=== PATIENT | female | born 1975 | race American Indian/Alaskan Native ===

== ENCOUNTER 2021-05-01 17:53 | Emergency (ER) | payer MEDICARE ==
[2021-05-01 20:03] VITALS: BP 154/71
--- NOTE | 2021-05-01 20:26 | Emergency Department Report ---
ED General Adult HPI - General Chief complaint: Allergic Reaction Stated complaint: FACIAL RASH Time Seen by Provider: 05/01/21 20:19 Source: patient Mode of arrival: Ambulatory Limitations: No Limitations - History of Present Illness Initial comments: 45 y/o female pt w/ hx of gastric bypass surgery presents to ED w/ complaints of pruritic rash and facial swelling for two days. No new foods, medications, or environmental/occupational exposures. Pt has been taking Benadryl and using OTC steroid cream with limited relief. No history of similar symptoms. Denies fever, chills, chest pain, wheezing, SOB, syncope, swelling of the tongue/lips. Denies all other complaints at this time. - Related Data Previous Rx's Medication Instructions Recorded Last Taken Type Famotidine [Acid Controller] 20 mg PO DAILY 5 Days tablet 05/01/21 Unknown Rx Hydrocortisone 2.5% [Hytone 2.5% 1 applicatio TP TID #1 tube 05/01/21 Unknown Rx CREAM] ED Review of Systems ROS: Stated complaint: FACIAL RASH Other details as noted in HPI Other: GENERAL: Negative for fever, chills, weight change, anorexia, fatigue. ENT: Negative for ear pain, difficulty hearing, sore throat, nasal congestion, epistaxis. CARDIOVASCULAR: Negative for chest pain, palpitations, lower extremity swelling. PULMONARY: Negative for cough, dyspnea, wheezing, orthopnea, cyanosis. GASTROINTESTINAL: Negative for abdominal pain, nausea, vomiting, diarrhea, constipation. MUSCULOSKELETAL: Negative for joint pain, joint swelling, myalgias, back pain, neck pain. NEUROLOGICAL: Negative for headache, seizure, syncope, paresthesias, weakness. INTEGUMENTARY: Positive for itching and swelling. HEMATOLOGICAL: Negative for hemoptysis, hematemesis, hematochezia, hematuria. PSYCHIATRIC: Negative for hallucinations, suicidal ideation, homicidal ideation, anxiety, depression. ED Past Medical Hx - Past Medical History Previous Medical History?: Yes Hx Deep Vein Thrombosis: Yes Hx GERD: Yes Hx Psychiatric Treatment: Yes (Depression, anxiety) - Surgical History Additional Surgical History: gastric bypass - Medications Home Medications: Home Medications Medication Instructions Recorded Confirmed Last Taken Type Famotidine [Acid Controller] 20 mg PO DAILY 5 Days tablet 05/01/21 Unknown Rx Hydrocortisone 2.5% [Hytone 2.5% 1 applicatio TP TID #1 tube 05/01/21 Unknown Rx CREAM] ED Physical Exam - General Limitations: No Limitations - Other Other exam information: General: Awake and alert. No acute distress. Head: Atraumatic, normocephalic. Mild facial swelling. Eyes: EOMI. Pupils are equal and round. Normal sclera and conjunctiva. ENT: Oral mucosa is moist. Normal pharyngeal exam. No angioedema. Uvula is midline and not edematous. Neck: Supple. No lymphadenopathy. Pulmonary: No respiratory distress. Clear to auscultation bilaterally. No stridor. Cardiac: Regular rate and rhythm. Pulses are palpable and equal bilaterally. No lower extremity cyanosis or edema. Skin: Diffuse, erythematous, maculopapular rash randomly distributed throughout trunk and extremities. Abdomen: Soft, non-tender, non-protuberant. No guarding, rigidity, or rebound. Bowel sounds are normal. No organomegaly or masses noted. Back: Normal alignment. No CVA tenderness. Extremities: Symmetrical. Full range of motion intact. Neurological: Alert and oriented, appropriately interactive, no focal deficits. Psych: Cooperative. Appropriate mood and affect. Speech is evenly metered. Thoughts are logically construed. ED Course Vital Signs 05/01/21 20:03 Temperature 98.1 F Pulse Rate 95 H Blood Pressure 154/71 O2 Sat by Pulse 100 Oximetry ED Medical Decision Making - Medical Decision Making Patient presents to the emergency department with signs/symptoms consistent with allergic reaction for the last 48 hours. Patient is afebrile, vital signs are stable, no hypoxia, no respiratory distress. No clinical evidence to suggest airway involvement warranting further ED treatment at this time. Patient is not an appropriate candidate for oral steroids due to her history of gastric bypass surgery. She will be given an IM injection of Decadron and prescribed oral antihistamines + topical steroid cream for symptomatic relief. Patient expressed understanding and is agreeable to plan of care. Strict return precautions provided. History, exam, diagnostic testing, and current condition do not suggest worrisome pathology to warrant further testing, continued ED treatment, admission, or surgical evaluation at this point. Given the low probability of a significant medical illness, it would be more likely to result in harm than benefit to perform further testing at this stage. Discussed findings, presumptive diagnosis, need for follow-up and specific signs/symptoms that should prompt immediate return to the emergency department. Instructions were explained in detail to the patient in addition to giving written discharge information. Patient expressed understanding and was given the opportunity to ask questions, all of which were satisfactorily answered prior to discharge home. Critical care attestation.: If time is entered above; I have spent that time in minutes in the direct care of this critically ill patient, excluding procedure time. ED Disposition Clinical Impression: Allergic reaction Qualifiers: Encounter type: initial encounter Qualified Code(s): T78.40XA - Allergy, unspecified, initial encounter Disposition: HOME / SELF CARE / HOMELESS Is pt being admited?: No Does the pt Need Aspirin: No Condition: Stable Instructions: Contact Dermatitis, [id number] Additional Instructions: Take Famotidine as directed. Use Hydrocortisone cream as directed. Continue Benadryl as needed for itching. Follow-up with your primary care provider this week. Call tomorrow to schedule an appointment. Return to the emergency department immediately for new or worsening symptoms. Specifically, return to the emergency department immediately for fever, difficulty breathing, chest tightness, swelling of the tongue/lips, worsening rash, or any other concerns. Prescriptions: Famotidine [Acid Controller] 20 mg PO DAILY 5 Days tablet Hydrocortisone 2.5% [Hytone 2.5% CREAM] 1 applicatio TP TID #1 tube Referrals: KIMBERLY LEIVA MD [Staff Physician] - 3-5 Days Time of Disposition: 20:30
[2021-05-01] MEDS ORDERED: dexAMETHasone 20 MG/5 ML VIAL IM ONE (22:00)
== END 2021-05-01 20:50 | disposition home or self-care (01) ==
LOC: ED 17:53
DX: T78.40XA Allergy, unspecified, initial encounter (principal); F32.9 Major depressive disorder, single episode, unspecified; F41.9 Anxiety disorder, unspecified
CPT/HCPCS: 99281; J1100